=== PATIENT | female | born 1965 | race Caucasian/White ===

== ENCOUNTER 2020-04-04 14:51 | Observation (INO) | payer SELFPAY ==
[2020-04-04] MEDS ORDERED: Nitroglycerin 0.4 MG TAB (25 Tab Bottle) PO PRN (17:58)
[2020-04-04] MEDS ORDERED: Ondansetron ODT 4 MG TAB PO PRN (18:02)
[2020-04-04] MEDS ORDERED: Nicotine 14 MG PATCH TD SCH (18:30)
[2020-04-04] MEDS: Acetaminophen 325 MG TAB PO PRN (18:44)
[2020-04-04 18:52] LABS: Troponin I 0.014 ng/mL (< 0.028)
--- NOTE | 2020-04-04 18:55 | HP ---
PRIMARY CARE PHYSICIAN: None. CHIEF COMPLAINT: Chest pain. HISTORY OF PRESENT ILLNESS: The patient is a 55-year-old female with a past medical history of COPD, untreated hypertension, and drug abuse, who presents to the ER for the above complaint. The patient reports at approximately 9:30 while at work, she developed a sudden onset of chest pain located substernal, nonradiating, described as a pressure or squeezing, pain scale 10/10 with associated diaphoresis and shortness of breath. She denies any heart palpitations, lower extremity swelling. She denies any recent cough, fever, or chills. After resting for several minutes, the pain was unrelieved. She decided to go to her sister's house, who gave her some sublingual nitroglycerin. She reports that the first sublingual nitroglycerin decreased the pain and the second sublingual nitroglycerin taken 5 minutes later resolved the pain completely and then decided to drive to the ER in [place]. In the ER in [place], an EKG was done, which showed normal sinus rhythm. Troponins were negative. CMP was unremarkable and CBC was unremarkable. The patient was given a full dose aspirin and transferred to the [place] ER for further evaluation. PAST MEDICAL HISTORY: 1. COPD. 2. Hypertension, untreated secondary to lack of insurance. 3. Drug abuse. PAST SURGICAL HISTORY: The patient has had a tubal. SOCIAL HISTORY: The patient lives in [place]. Lives alone. She works for [employer]. She is a one pack per day smoker x25 years. She has a previous history of meth and cocaine abuse. Last use two years ago. ALLERGIES: NO KNOWN ALLERGIES. HOME MEDICATIONS: The patient has no home medications. FAMILY HISTORY: Her sister has a history of an ID. REVIEW OF SYSTEMS: All other review of systems are negative unless otherwise noted in HPI. PHYSICAL EXAMINATION: VITAL SIGNS: Temperature 97.7 oral, blood pressure was 150/112, pulse was 75, respirations were 17. The patient was 96% on room air. Her pain scale was 0/ 10. CONSTITUTIONAL: The patient was oriented to person, place, and time, and in no acute distress. Nontoxic. The patient appears older than stated age. HEAD: Atraumatic, normocephalic. EYES: PERRLA. Extraocular muscles were intact. Nonicteric. ENT: Nares were patent bilaterally. Posterior oropharynx was clear. Uvula midline. Moist mucous membranes. NECK: Supple. Trachea is midline. No lymphadenopathy. No JVD. RESPIRATORY: Respirations are even and unlabored, and diminished in the bilateral lower bases. No rhonchi, wheezes, or rales. CARDIOVASCULAR: Regular rate and rhythm. No murmurs, rubs, or gallops. ABDOMEN: Soft, nontender to palpation. Active bowel sounds. No guarding or rigidity. No peritoneal signs. BACK: Normal inspection. No CVA tenderness. EXTREMITIES: Upper extremities; bilateral lower extremities were no open lesions. No bruising. Palpable radial and ulnar pulses. Brisk cap refill. Full range of motion. Lower extremities; bilateral lower extremities were normal range of motion. No open lesions. No bruising. No swelling. Palpable pedal pulses. Brisk cap refill. Full range of motion. NEURO: The patient was neurologically intact, oriented to person, place, and time. She will follow commands. GCS of 15. SKIN: Clean, dry, and intact. LABORATORY DATA: EKG was normal sinus rhythm 70 beats per minute. First troponin was negative. Second troponin in [place] ED was 0.014. Comprehensive metabolic panel was unremarkable. WBC is 10.1, hemoglobin 14.4, hematocrit 48.5, platelets 404. IMPRESSION AND PLAN: 1. Chest pain. Admit the patient to telemetry for observation status. Expected length of stay less than two midnights. The patient reports development of chest pain with exertion with a past medical history of hypertension and chronic obstructive pulmonary disease and smoking. HEART score was 5. First troponin negative. Second troponin 0.014. The patient was given aspirin in the ER. We will continue aspirin. We will trend troponins. We will order a nuclear med stress test with echo. We will check a BMP, Mag, and TSH. Make the patient n.p.o. after midnight. 2. Hypertension. The patient presented in the ER hypertensive. We will add antihypertensive medications p.r.n. 3. Chronic obstructive pulmonary disease, chronic, stable. Supplemental oxygen as needed. 4. Tobacco abuse. We will start NRT therapy and we will appliance counselor on tobacco cessation. 5. History of drug abuse. We will check a UDS. The patient admits to previously using cocaine and methamphetamines. Last usage was over two years ago. We will check a UDS. We will apply SCDs for DVT prophylaxis. We will provide Pepcid for GI prophylaxis. The patient is a full code. Designated medical decision maker is Suhail Dennis her son, #[phone]. Discussed the case with Dr. Valente. Job ID: [id number] MTDD
[2020-04-04 19:29] VITALS: BMI 19.3
[2020-04-04 21:48] LABS: Troponin I 0.016 ng/mL (< 0.028)
[2020-04-04] MEDS: Famotidine 20 MG TAB PO SCH (21:51)
[2020-04-04 22:31] LABS: Pregnancy Test - Urine (BHCG) Negative (Negative); Pregu Control Background? CLEAR/WHITE (CLR/WHITE); Pregu Control Bar Appear? YES (CONTROL BAR); Specific Gravity 1.008 (1.002-1.036)
[2020-04-04 22:32] LABS: Bacteria/HPF None Seen HPF (None Seen); Mucous/LPF Rare LPF (<2+); RBC/HPF 0-3 HPF (0-3); Squamous Epithelial 0-3 HPF (0-3); WBC/HPF None Seen HPF (0-3)
[2020-04-04] MEDS ORDERED: Sodium Chloride 0.9% 1,000 ML IV SCH (23:59)
[2020-04-05] MEDS: Acetaminophen 325 MG TAB PO PRN ×2 (03:54→15:38)
[2020-04-05 04:58] LABS: #Basophils 0.1 thou/uL (0.0-0.2); #Eosinphils 0.4 thou/uL (0.0-0.7); #Lymphocytes 2.9 thou/uL (1.20-3.40); #Monocytes 0.6 thou/uL (0.11-0.59); #Neutrophils 4.9 thou/uL (1.40-6.50); %Basophils 0.7 % (0.0-1.0); %Eosinophils 4.2 % (0.0-10.0); %Lymphocytes 33.1 % (21.0-51.0); %Monocytes 7.1 % (0.0-10.0); %Neutrophils 54.8 % (42.0-75.0); Hemoglobin 13.9 g/dL (12.0-16.0); Mean Corpuscular HGB CONC 33.6 g/dL (32.0-36.0); Mean Corpuscular Hemoglobin 30.7 pg (27.0-31.0); Mean Corpuscular Volume 91.3 fL (78.0-98.0); Mean Platelet Volume 7.1 fL (7.4-10.4); Platelet Count 325 thou/uL (130-400); RBC Distribution Width 11.7 % (11.5-14.5); Red Blood Cell (RBC) Count 4.53 mill/uL (4.20-5.40); White Blood Cell (WBC) Count 8.8 thou/uL (4.8-10.8)
[2020-04-05 05:20] LABS: Anion Gap 9 mmol/L (10-20); BUN (Urea Nitrogen) 11 mg/dL (9.8-20.1); Calc. Creatinine Clearance 78 mL/min (70-130); Calcium 8.9 mg/dL (7.8-10.44); Carbon Dioxide 28 mmol/L (22-29); Cardiac Risk 3.9 (Less than 4.5); Chloride 105 mmol/L (98-107); Cholesterol 165 mg/dl (< 200 Desired); Estimated GFR-MDRD Greater than 90; Glucose 91 mg/dL (70-105); HDL Cholesterol 42 mg/dL (>60 Neg Risk); LDL Cholesterol, Calculated 106 mg/dL; Potassium 3.7 mmol/L (3.5-5.1); Sodium 138 mmol/L (136-145); Triglycerides 87 mg/dL (Less than 150)
[2020-04-05 08:08] LABS: Amphetamine Not Detected (NotDetected); Barbiturates Screen Not Detected (NotDetected); Benzodiazepine Screen Not Detected (NotDetected); Cocaine Metabolite Screen Not Detected (NotDetected); Medtox Control Line Valid? VALID (VALID); Medtox Reader # READER 1; Methadone Not Detected (NotDetected); Methamphetamine Not Detected (NotDetected); Opiate Screen Not Detected (NotDetected); Oxycodone Screen Not Detected (NotDetected); Phencyclidine (PCP) Not Detected (NotDetected); THC/Cannabinoid Screen Not Detected (NotDetected); Tricyclic Screen Not Detected (NotDetected)
[2020-04-05] MEDS: Famotidine 20 MG TAB PO SCH (08:33)
[2020-04-05] MEDS ORDERED: Amlodipine 5 MG TAB PO SCH (09:00)
[2020-04-05] MEDS ORDERED: Aspirin 81 mg Enteric Coated Tablet PO SCH (09:00)
[2020-04-05] MEDS ORDERED: Regadenoson 0.4 MG/5 ML SYRINGE ONE (10:44)
[2020-04-05] MEDS ORDERED: cloNIDine 0.1 MG TAB PO PRN (11:49)
[2020-04-05] MEDS ORDERED: Labetalol HCl 100 MG/20 ML VIAL SLOW IVP PRN (11:49)
--- NOTE | 2020-04-05 12:44 | NM ---
EXAM: CARDIAC SPECT HISTORY: Chest pain, hypertension, COPD, smoker TECHNIQUE: A myocardial perfusion scan was performed using the single isotope 1 day protocol with shaheen hnetium 99m sestamibi. [10 mCi] was injected intravenously for the rest exam followed by 30 mCi for the stress study. Pharmacologic stress with Lexiscan was monitored and interpreted by Shane Downing nurse practitioner FINDINGS: Homogeneous tracer distribution is seen in the myocardial segments on stress and rest image s without fixed or reversible defects. TID ratio measures 1.42 Gated SPECT LVEF: 51% Wall motion exam: TID ratio is 1.42. Clinical correlation is recommended IMPRESSION: Normal myocardial perfusion scan
[2020-04-05] MEDS ORDERED: hydrALAZINE 20 MG/ML VIAL SLOW IVP PRN (13:33)
[2020-04-05] MEDS ORDERED: NIFEdipine XL 30 MG TAB PO SCH (13:45)
[2020-04-05 16:08] VITALS: BP 164/93; TEMP 98.2
--- NOTE | 2020-04-05 19:43 | DIS ---
DATE OF ADMISSION: 04/04/2020 DATE OF DISCHARGE: 04/05/2020 DISCHARGE DISPOSITION: Home. The patient was advised to follow up with [facility] in 1 week. DISCHARGE MEDICATIONS: Amlodipine 5 mg daily, clonidine as needed. The patient was seen and examined on the day of discharge. Denies any new complaints. BRIEF HOSPITAL COURSE: The patient is a 55-year-old female with hypertension, tobacco dependence, currently not taking any medications, presented to the emergency room with chest discomfort. Please refer to the history and physical for further details. The patient was admitted to the hospital with a diagnosis of chest discomfort, rule out acute coronary syndrome. Serial troponins remained negative. She underwent exercise Cardiolite stress test that was negative for reversible ischemia. Echocardiogram showed ejection fraction of 60% to 65% with mild diastolic dysfunction. Due to history of COPD, beta-blockers were avoided. She was started on amlodipine. She was advised to monitor blood pressure on a daily basis and to maintain a log. She was advised to follow up with [facility] in 3 to 4 days. FINAL DIAGNOSES: 1. Chest discomfort, acute coronary syndrome ruled out. 2. Uncontrolled hypertension, improved. 3. Chronic obstructive pulmonary disease. 4. Ongoing tobacco abuse. The patient was counseled. 5. History of drug abuse. Urine drug screen was negative. The patient understands the above plan of care. Job ID: [id number]
== END 2020-04-05 17:50 | disposition home or self-care (01) ==
LOC: ERS 14:51 → 2NO 15:42
PROVIDERS: ADMIT Family Medicine; ATTEND Family Medicine
DX: R07.89 Other chest pain (principal); I10 Essential (primary) hypertension; F17.210 Nicotine dependence, cigarettes, uncomplicated; J44.9 Chronic obstructive pulmonary disease, unspecified; Z82.49 Family history of ischemic heart disease and other diseases of the circulatory system
CPT/HCPCS: 36415; 78452; 80048; 80061; 80306; 81015; 81025; 83735; 83880; 84443; 85025; 93005; 93017; 93306; 94760; 96360; 96361; A9500; G0378; J2785

== ENCOUNTER 2021-12-28 10:48 | Inpatient (IN) | payer SELFPAY ==
[2021-12-28] MEDS ORDERED: Iopamidol 370 76% 100 ML VIAL ONE (11:48)
[2021-12-28 12:17] LABS: Hemoglobin 13.3 g/dL (12.0-16.0); Mean Corpuscular HGB CONC 32.7 g/dL (32.0-36.0); Mean Corpuscular Hemoglobin 29.6 pg (27.0-31.0); Mean Corpuscular Volume 90.6 fL (78.0-98.0); Mean Platelet Volume 6.9 fL (7.4-10.4); Platelet Count 435 thou/uL (130-400); RBC Distribution Width 12.3 % (11.5-14.5); Red Blood Cell (RBC) Count 4.51 mill/uL (4.20-5.40); White Blood Cell (WBC) Count 15.1 thou/uL (4.8-10.8)
[2021-12-28 12:35] LABS: Band 13 % (5-11); Lymphocytes 5 % (21-51); MDiff Complete? YES; Myelocyte 1 % (0-0); Neutrophil 81 % (42-75); Platelet Morphology Comment Appears Increased; RBC Morphology Normal
[2021-12-28 12:41] LABS: ALT (SGPT) 30 U/L (8-55); AST (SGOT) 55 U/L (5-34); Albumin 3.5 g/dL (3.5-5.0); Alkaline Phosphatase 156 U/L (40-110); Anion Gap 14 mmol/L (10-20); BUN (Urea Nitrogen) 9 mg/dL (9.8-20.1); Bilirubin, Total 0.6 mg/dL (0.2-1.2); Calc. Creatinine Clearance 0 mL/min (70-130); Calcium 9.7 mg/dL (7.8-10.44); Carbon Dioxide 31 mmol/L (22-29); Chloride 94 mmol/L (98-107); Globulin 3.8 g/dL (2.4-3.5); Glucose 136 mg/dL (70-105); Potassium 3.5 mmol/L (3.5-5.1); Protein, Total 7.3 g/dL (6.0-8.3); Sodium 135 mmol/L (136-145)
[2021-12-28] MEDS ORDERED: Magnesium 2 GM/50 ML BAG (IN WATER) ONE (13:59)
[2021-12-28] MEDS ORDERED: FLU VACC QS2021-22(6MOS UP)/PF 60 MCG/0.5 ML SYRINGE IM ONE (16:15)
[2021-12-28] MEDS ORDERED: Acetaminophen 325 MG TAB PO PRN (17:34)
[2021-12-28] MEDS ORDERED: Ondansetron PF 4 MG/2 ML Vial IVP PRN (17:34)
[2021-12-28] MEDS ORDERED: Guaifenesin DM 100-10/5 ML UDCUP PO PRN (17:34)
[2021-12-28] MEDS ORDERED: hydrALAZINE 20 MG/ML VIAL SLOW IVP PRN (17:58)
[2021-12-28] MEDS: Nicotine 21 MG PATCH TD SCH (19:10)
[2021-12-28] MEDS: methylPREDNISolone Sod Succ 40 MG VIAL IVP SCH (19:10)
[2021-12-28] MEDS: Benzonatate 100 MG CAP PO SCH (21:24)
[2021-12-28] MEDS: Famotidine 20 MG TAB PO SCH (21:24)
[2021-12-28 21:53] LABS: SARS-CoV-2 PCR by NAA Not Detected (NotDetected)
[2021-12-29] MEDS: methylPREDNISolone Sod Succ 40 MG VIAL IVP SCH ×4 (00:38→22:52)
[2021-12-29 08:28] LABS: Anion Gap 15 mmol/L (10-20); BUN (Urea Nitrogen) 14 mg/dL (9.8-20.1); Calc. Creatinine Clearance 79 mL/min (70-130); Calcium 9.6 mg/dL (7.8-10.44); Carbon Dioxide 30 mmol/L (22-29); Chloride 96 mmol/L (98-107); Glucose 160 mg/dL (70-105); Potassium 3.4 mmol/L (3.5-5.1); Sodium 138 mmol/L (136-145)
[2021-12-29 08:31] LABS: Hemoglobin 12.5 g/dL (12.0-16.0); Mean Corpuscular HGB CONC 31.9 g/dL (32.0-36.0); Mean Corpuscular Hemoglobin 28.4 pg (27.0-31.0); Mean Corpuscular Volume 88.9 fL (78.0-98.0); Mean Platelet Volume 6.9 fL (7.4-10.4); Platelet Count 468 thou/uL (130-400); RBC Distribution Width 12.2 % (11.5-14.5); Red Blood Cell (RBC) Count 4.41 mill/uL (4.20-5.40); White Blood Cell (WBC) Count 16.4 thou/uL (4.8-10.8)
[2021-12-29 08:34] LABS: Band 13 % (5-11); Lymphocytes 7 % (21-51); MDiff Complete? YES; Monocytes 4 % (0-10); Neutrophil 76 % (42-75); Platelet Morphology Comment Appears Increased; Polychromasia SLIGHT = 2-3 cells (100X) (0-2/hpf)
[2021-12-29] MEDS: Enoxaparin Sodium 40 MG/0.4 ML SYRINGE SC SCH (08:42)
[2021-12-29] MEDS: Benzonatate 100 MG CAP PO SCH ×3 (08:42→20:32)
[2021-12-29] MEDS: Famotidine 20 MG TAB PO SCH ×2 (08:42→20:33)
[2021-12-29] MEDS ORDERED: Amlodipine 5 MG TAB PO SCH (11:45)
[2021-12-29] MEDS ORDERED: guaiFENesin/DM ER PO SCH (11:45)
[2021-12-29] MEDS ORDERED: Potassium Chloride 20 MEQ TAB PO SCH (12:15)
[2021-12-29] MEDS: Nicotine 21 MG PATCH TD SCH (18:12)
[2021-12-29] MEDS: Mometasone 200 MCG/Formoterol 5 MCG 120 PUFF INHALER INH SCH (19:43)
[2021-12-29] MEDS: Potassium Chloride 20 MEQ TAB PO SCH (20:32)
[2021-12-29] MEDS: guaiFENesin/DM ER PO SCH (20:33)
[2021-12-30] MEDS: methylPREDNISolone Sod Succ 40 MG VIAL IVP SCH ×5 (05:26→23:46)
[2021-12-30 06:29] LABS: Anion Gap 15 mmol/L (10-20); BUN (Urea Nitrogen) 14 mg/dL (9.8-20.1); Calc. Creatinine Clearance 83 mL/min (70-130); Calcium 9.5 mg/dL (7.8-10.44); Carbon Dioxide 28 mmol/L (22-29); Chloride 98 mmol/L (98-107); Glucose 136 mg/dL (70-105); Potassium 4.1 mmol/L (3.5-5.1); Sodium 137 mmol/L (136-145)
[2021-12-30 06:38] LABS: Hemoglobin 11.5 g/dL (12.0-16.0); Mean Corpuscular HGB CONC 31.3 g/dL (32.0-36.0); Mean Corpuscular Hemoglobin 28.3 pg (27.0-31.0); Mean Corpuscular Volume 90.4 fL (78.0-98.0); Mean Platelet Volume 6.7 fL (7.4-10.4); Platelet Count 519 thou/uL (130-400); RBC Distribution Width 12.3 % (11.5-14.5); Red Blood Cell (RBC) Count 4.06 mill/uL (4.20-5.40); White Blood Cell (WBC) Count 22.9 thou/uL (4.8-10.8)
[2021-12-30 07:08] LABS: Band 12 % (5-11); Hypochromia SLIGHT = 6-15 cells (100X) (0-5/hpf); Lymphocytes 2 % (21-51); MDiff Complete? YES; Metamyelocyte 1 % (0-0); Monocytes 4 % (0-10); Myelocyte 1 % (0-0); Neutrophil 80 % (42-75); Platelet Morphology Comment Appears Increased; Polychromasia SLIGHT = 2-3 cells (100X) (0-2/hpf)
[2021-12-30] MEDS: Mometasone 200 MCG/Formoterol 5 MCG 120 PUFF INHALER INH SCH ×2 (07:59→19:44)
[2021-12-30] MEDS: Potassium Chloride 20 MEQ TAB PO SCH (08:45)
[2021-12-30] MEDS: Benzonatate 100 MG CAP PO SCH ×3 (09:02→20:11)
[2021-12-30] MEDS: Amlodipine 5 MG TAB PO SCH (09:03)
[2021-12-30] MEDS: guaiFENesin/DM ER PO SCH ×2 (09:03→20:11)
[2021-12-30] MEDS: Famotidine 20 MG TAB PO SCH ×2 (09:03→20:11)
[2021-12-30] MEDS: Enoxaparin Sodium 40 MG/0.4 ML SYRINGE SC SCH (09:03)
[2021-12-30] MEDS: Nicotine 21 MG PATCH TD SCH (18:11)
[2021-12-31] MEDS: methylPREDNISolone Sod Succ 40 MG VIAL IVP SCH ×3 (05:11→20:42)
[2021-12-31 06:25] LABS: Band 15 % (5-11); Hemoglobin 11.9 g/dL (12.0-16.0); Hypochromia SLIGHT = 6-15 cells (100X) (0-5/hpf); Lymphocytes 3 % (21-51); MDiff Complete? YES; Mean Corpuscular HGB CONC 32.8 g/dL (32.0-36.0); Mean Corpuscular Hemoglobin 29.5 pg (27.0-31.0); Mean Corpuscular Volume 89.9 fL (78.0-98.0); Mean Platelet Volume 6.6 fL (7.4-10.4); Monocytes 14 % (0-10); Neutrophil 68 % (42-75); Platelet Count 548 thou/uL (130-400); Platelet Morphology Comment Appears Increased; RBC Distribution Width 12.4 % (11.5-14.5); Red Blood Cell (RBC) Count 4.04 mill/uL (4.20-5.40)
[2021-12-31] MEDS: Mometasone 200 MCG/Formoterol 5 MCG 120 PUFF INHALER INH SCH ×2 (06:36→18:56)
[2021-12-31] MEDS: Famotidine 20 MG TAB PO SCH ×2 (08:30→20:40)
[2021-12-31] MEDS: Amlodipine 5 MG TAB PO SCH (08:49)
[2021-12-31] MEDS: Enoxaparin Sodium 40 MG/0.4 ML SYRINGE SC SCH (08:49)
[2021-12-31] MEDS: Benzonatate 100 MG CAP PO SCH ×3 (08:49→20:40)
[2021-12-31] MEDS: guaiFENesin/DM ER PO SCH ×2 (08:50→20:41)
[2021-12-31] MEDS ORDERED: Amlodipine 10 MG TAB PO SCH (10:00)
[2021-12-31] MEDS ORDERED: Amlodipine 5 MG TAB PO SCH (11:30)
[2021-12-31 16:07] VITALS: BMI 20.5
[2021-12-31] MEDS: Nicotine 21 MG PATCH TD SCH (17:33)
[2022-01-01] MEDS: methylPREDNISolone Sod Succ 40 MG VIAL IVP SCH (03:33)
[2022-01-01] MEDS: Mometasone 200 MCG/Formoterol 5 MCG 120 PUFF INHALER INH SCH (07:23)
[2022-01-01 07:48] VITALS: BP 148/92; TEMP 98.5
[2022-01-01] MEDS ORDERED: Amlodipine 10 MG TAB PO SCH (09:00)
[2022-01-01] MEDS: guaiFENesin/DM ER PO SCH (09:23)
[2022-01-01] MEDS: Famotidine 20 MG TAB PO SCH (09:24)
[2022-01-01] MEDS: Benzonatate 100 MG CAP PO SCH (09:25)
[2022-01-01] MEDS: Enoxaparin Sodium 40 MG/0.4 ML SYRINGE SC SCH (09:25)
== END 2022-01-01 12:43 | disposition home or self-care (01) | DRG 189 ==
LOC: ERS 10:48 → T4-B 13:47
PROVIDERS: ADMIT Hospitalist; ATTEND Family Medicine
DX: J96.01 Acute respiratory failure with hypoxia (principal); J44.1 Chronic obstructive pulmonary disease with (acute) exacerbation; Z20.822 Contact with and (suspected) exposure to COVID-19; E87.6 Hypokalemia; F17.210 Nicotine dependence, cigarettes, uncomplicated; I10 Essential (primary) hypertension; F41.9 Anxiety disorder, unspecified; F32.A Depression, unspecified; D72.829 Elevated white blood cell count, unspecified; R07.9 Chest pain, unspecified; Z86.19 Personal history of other infectious and parasitic diseases; Z91.14 Patient's other noncompliance with medication regimen; Z98.51 Tubal ligation status; Z82.49 Family history of ischemic heart disease and other diseases of the circulatory system; Z71.6 Tobacco abuse counseling
CPT/HCPCS: 36415; 71045; 71275; 80048; 80053; 84484; 85007; 85025; 85027; 93005; 94640; 96374; J1650; J1956; J2405; J2920; J3475; J7620; Q9967; U0003; U0005

== ENCOUNTER 2022-11-07 17:25 | Inpatient (IN) | payer BC ==
[2022-11-07] MEDS ORDERED: methylPREDNISolone Sod Succ/PF 125 MG/2 ML VIAL ONE (17:54)
[2022-11-07] MEDS ORDERED: Albuterol Sulfate 2.5 mg/3 ml Neb ONE (18:04)
[2022-11-07] MEDS ORDERED: Ipratropium Bromide 2.5 ml Neb ONE (18:04)
[2022-11-07 18:12] LABS: #Eosinphils 0.1 thou/uL (0.0-0.7); #Lymphocytes 1.1 thou/uL (1.20-3.40); #Monocytes 0.8 thou/uL (0.11-0.59); #Neutrophils 3.7 thou/uL (1.40-6.50); %Basophils 0.6 % (0.0-1.0); %Lymphocytes 19.3 % (21.0-51.0); %Monocytes 14.4 % (0.0-10.0); %Neutrophils 63.7 % (42.0-75.0); Hemoglobin 14.3 g/dL (12.0-16.0); Mean Corpuscular HGB CONC 32.9 g/dL (32.0-36.0); Mean Corpuscular Hemoglobin 29.8 pg (27.0-31.0); Mean Corpuscular Volume 90.5 fl (78.0-98.0); Mean Platelet Volume 9.8 fL (7.4-10.4); Platelet Count 187 10x3/uL (130-400); RBC Distribution Width 13.1 % (11.5-14.5); Red Blood Cell (RBC) Count 4.81 mill/uL (4.20-5.40); White Blood Cell (WBC) Count 5.8 10x3/uL (4.8-10.8)
[2022-11-07 19:07] LABS: SARS-CoV-2 NAA Rapid Test Not Detected (NotDetected)
[2022-11-07 19:37] LABS: Albumin 3.9 g/dL (3.5-5.0)
[2022-11-07 19:38] LABS: Chloride 105 mmol/L (98-107); Potassium 4.3 mmol/L (3.5-5.1); Sodium 138 mmol/L (136-145)
[2022-11-07 19:39] LABS: Calcium 8.7 mg/dL (7.8-10.44); Glucose 106 mg/dL (70-105)
[2022-11-07 19:40] LABS: Globulin 2.6 g/dL (2.4-3.5); Protein, Total 6.5 g/dL (6.0-8.3)
[2022-11-07 19:41] LABS: Anion Gap 12 mmol/L (10-20); Bilirubin, Total 0.6 mg/dL (0.2-1.2); Carbon Dioxide 25 mmol/L (22-29)
[2022-11-07 19:42] LABS: Alkaline Phosphatase 87 U/L (40-110)
[2022-11-07 19:43] LABS: Calc. Creatinine Clearance 0 mL/min (70-130); Estimated GFR 102
[2022-11-07 19:44] LABS: AST (SGOT) 21 U/L (5-34); BUN (Urea Nitrogen) 11 mg/dL (9.8-20.1)
[2022-11-07 19:45] LABS: ALT (SGPT) 11 U/L (8-55)
[2022-11-07] MEDS ORDERED: Albuterol Sulfate 2.5 mg/3 ml Neb NEB PRN (20:27)
[2022-11-07] MEDS ORDERED: cefTRIAXone\\ROCEPHIN 1 GM in Sodium Chloride 0.9% 100 ML IVPB SCH (21:00)
[2022-11-07 23:13] VITALS: BMI 19.6
[2022-11-07] MEDS: guaiFENesin ER 600 MG TAB PO SCH (23:51)
[2022-11-08] MEDS ORDERED: Ipratropium Bromide 2.5 ml Neb ONE ×2 (00:21→03:09)
[2022-11-08 03:24] LABS: Strep pneumo Urine Ag NEGATIVE (NEGATIVE)
[2022-11-08 07:11] LABS: #Lymphocytes 0.6 thou/uL (1.20-3.40); #Monocytes 0.3 thou/uL (0.11-0.59); %Eosinophils 0.1 % (0.0-10.0); %Monocytes 6.3 % (0.0-10.0); %Neutrophils 80.6 % (42.0-75.0); Hemoglobin 14.1 g/dL (12.0-16.0); Mean Corpuscular Hemoglobin 30.2 pg (27.0-31.0); Mean Corpuscular Volume 91.3 fl (78.0-98.0); Mean Platelet Volume 7.3 fL (7.4-10.4); Platelet Count 233 10x3/uL (130-400); RBC Distribution Width 12.3 % (11.5-14.5); Red Blood Cell (RBC) Count 4.68 mill/uL (4.20-5.40); White Blood Cell (WBC) Count 4.9 10x3/uL (4.8-10.8)
[2022-11-08] MEDS: Budesonide 0.5 MG/2 ML NEB NEB SCH ×2 (07:28→18:24)
[2022-11-08] MEDS: Ipratropium Bromide 2.5 ml Neb NEB SCH ×3 (07:28→18:24)
[2022-11-08] MEDS ORDERED: AMOXicillin 250 MG CAP PO SCH (09:00)
[2022-11-08] MEDS: Acetaminophen 325 MG TAB PO PRN ×2 (09:19→21:01)
[2022-11-08] MEDS: Enoxaparin Sodium 40 MG/0.4 ML SYRINGE SC SCH (09:20)
[2022-11-08] MEDS: Benzonatate 100 MG CAP PO PRN ×2 (09:20→21:00)
[2022-11-08] MEDS: AMOXicillin 250 MG CAP PO SCH ×3 (09:20→21:01)
[2022-11-08] MEDS: predniSONE 20 MG TAB PO SCH (09:20)
[2022-11-08] MEDS: guaiFENesin ER 600 MG TAB PO SCH ×2 (09:20→21:00)
[2022-11-08] MEDS: Nicotine 14 MG PATCH TD SCH (09:21)
[2022-11-08] MEDS: Albuterol Sulfate 2.5 mg/3 ml Neb EZPAP SCH ×4 (11:33→22:21)
[2022-11-08] MEDS ORDERED: cloNIDine 0.1 MG TAB PO PRN (11:36)
[2022-11-09] MEDS: Albuterol Sulfate 2.5 mg/3 ml Neb EZPAP SCH ×3 (01:56→11:01)
[2022-11-09] MEDS: Ipratropium Bromide 2.5 ml Neb NEB SCH ×3 (01:56→14:14)
[2022-11-09] MEDS: predniSONE 20 MG TAB PO SCH (08:23)
[2022-11-09] MEDS: Acetaminophen 325 MG TAB PO PRN (08:24)
[2022-11-09] MEDS: Benzonatate 100 MG CAP PO PRN (08:24)
[2022-11-09] MEDS: Amlodipine 5 MG TAB PO SCH (08:24)
[2022-11-09] MEDS: guaiFENesin ER 600 MG TAB PO SCH ×2 (08:24→20:28)
[2022-11-09] MEDS: Nicotine 14 MG PATCH TD SCH (08:25)
[2022-11-09] MEDS: Enoxaparin Sodium 40 MG/0.4 ML SYRINGE SC SCH (08:25)
[2022-11-09] MEDS: AMOXicillin 250 MG CAP PO SCH ×3 (08:26→20:28)
[2022-11-09] MEDS ORDERED: Cepastat Lozenges 1 LOZ PO PRN (10:05)
[2022-11-09] MEDS: Budesonide 0.5 MG/2 ML NEB NEB SCH ×2 (10:07→18:38)
[2022-11-09 20:37] VITALS: TEMP 98
[2022-11-09] MEDS ORDERED: Melatonin 3 MG TAB PO SCH (21:00)
[2022-11-10] MEDS ORDERED: Ipratropium Bromide 2.5 ml Neb ONE (02:07)
[2022-11-10] MEDS ORDERED: Albuterol Sulfate 2.5 mg/3 ml Neb NEB PRN (06:58)
[2022-11-10] MEDS ORDERED: Chloraseptic Spray 180 ml Bottle PO PRN (06:59)
[2022-11-10] MEDS: Budesonide 0.5 MG/2 ML NEB NEB SCH (07:36)
[2022-11-10 08:18] VITALS: BP 131/89
[2022-11-10] MEDS: Amlodipine 5 MG TAB PO SCH (08:49)
[2022-11-10] MEDS: AMOXicillin 250 MG CAP PO SCH (08:49)
[2022-11-10] MEDS: Nicotine 14 MG PATCH TD SCH (08:50)
[2022-11-10] MEDS: Enoxaparin Sodium 40 MG/0.4 ML SYRINGE SC SCH (08:50)
[2022-11-10] MEDS: predniSONE 20 MG TAB PO SCH (08:50)
[2022-11-10] MEDS: guaiFENesin ER 600 MG TAB PO SCH (08:50)
[2022-11-10] MEDS: Benzonatate 100 MG CAP PO PRN (08:50)
== END 2022-11-10 15:30 | disposition home or self-care (01) | DRG 189 ==
LOC: ERS 17:25 → T4-B 19:21
PROVIDERS: ADMIT Emergency Medicine; ATTEND Emergency Medicine
DX: J96.01 Acute respiratory failure with hypoxia (principal); J44.1 Chronic obstructive pulmonary disease with (acute) exacerbation; Z20.822 Contact with and (suspected) exposure to COVID-19; H66.92 Otitis media, unspecified, left ear; J02.9 Acute pharyngitis, unspecified; I10 Essential (primary) hypertension; R73.03 Prediabetes; F41.9 Anxiety disorder, unspecified; F32.A Depression, unspecified; F17.210 Nicotine dependence, cigarettes, uncomplicated; Z79.899 Other long term (current) drug therapy; Z98.51 Tubal ligation status
CPT/HCPCS: 36415; 36416; 71045; 80053; 84484; 85025; 87070; 87205; 87449; 89220; 93005; 94640; 94760; 96374; J1650; J2930; J7512; J7611; J7620; J7626

== ENCOUNTER 2023-05-09 09:50 | Outpatient (CLI) | payer BC, MEDICAID | END 2023-05-09 09:51 | disposition home or self-care (01) | LOC: RAD 09:50 | PROVIDERS: ATTEND Internal Medicine Critical Care Medicine | DX: R06.00 Dyspnea, unspecified (principal) | CPT/HCPCS: 71046 ==

== ENCOUNTER 2024-07-28 13:21 | Emergency (ER) | payer BC, OTHER ==
[2024-07-28] MEDS ORDERED: methylPREDNISolone Sod Succ/PF 125 MG/2 ML VIAL ONE (13:43)
[2024-07-28 13:58] LABS: #Basophils 0.05 10x3/uL (0.0-0.2); %Basophils 0.4 % (0.0-1.0); %Eosinophils 1.9 % (0.0-10.0); %Lymphocytes 11.9 % (21.0-51.0); %Monocytes 7.7 % (0.0-10.0); %Neutrophils 77.7 % (42.0-75.0); Hemoglobin 14.4 g/dL (12.0-16.0); Mean Corpuscular HGB CONC 33.5 g/dL (32.0-36.0); Mean Corpuscular Volume 86.7 fL (78.0-98.0); Mean Platelet Volume 9.7 fL (7.4-10.4); Platelet Count 291 10x3/uL (130-400); RBC Distribution Width 13.3 % (11.5-14.5); Red Blood Cell (RBC) Count 4.96 mill/uL (4.20-5.40)
[2024-07-28] MEDS ORDERED: Ipratropium/Albuterol 3 ML NEB ONE (14:14)
[2024-07-28 14:20] LABS: Anion Gap 13 mmol/L (10-20); BUN (Urea Nitrogen) 14 mg/dL (9.8-20.1); Calc. Creatinine Clearance 0 mL/min (70-130); Calcium 9.3 mg/dL (7.8-10.44); Carbon Dioxide 28 mmol/L (22-29); Chloride 106 mmol/L (98-107); Estimated GFR 94; Glucose 85 mg/dL (70-105); Potassium 3.9 mmol/L (3.5-5.1); Sodium 143 mmol/L (136-145)
[2024-07-28 14:27] LABS: Troponin I Less than 0.010 ng/mL (< 0.028)
== END 2024-07-28 17:07 | disposition home or self-care (01) ==
LOC: ERS 13:21
DX: J44.1 Chronic obstructive pulmonary disease with (acute) exacerbation (principal); I10 Essential (primary) hypertension
CPT/HCPCS: 36415; 71045; 80048; 83605; 83880; 84484; 85025; 87040; 93005; 94760; 96374; J2919; J7620